=== PATIENT | male | born 1960 | race Caucasian/White ===

== ENCOUNTER 2025-03-05 06:35 | Day surgery (SDC) | payer MEDICARE, BC ==
[2025-03-05] MEDS ORDERED: Lactated Ringers 1,000 ML IV ONE (06:53)
[2025-03-05] MEDS ORDERED: CLINDAMYCIN-D5W 900 MG/50 ML*** 900 MG/50 ML BAG IV ONE (06:53)
[2025-03-05 07:09] VITALS: RESP 18
[2025-03-05] MEDS: Lactated Ringers 1,000 ML IV SCH (07:14)
[2025-03-05] MEDS: CLINDAMYCIN-D5W 900 MG/50 ML*** 900 MG/50 ML BAG IV SCH (07:15)
[2025-03-05 07:16] LABS: Hematocrit 43.5 % (40.1-51.0); Hemoglobin 14.1 g/dL (13.7-17.5); Mean Cell Volume 93.1 fL (79.0-92.2); Mean Corpuscular Hemoglobin 30.2 pg (25.7-32.2); Mean Corpuscular Hgb Concent. 32.4 g/dL (32.3-36.5); Mean Platelet Volume 8.5 fL (9.4-12.4); Platelet Count 260 x10^3/uL (163-337); Red Blood Count 4.67 x10^6/uL (4.63-6.08); Red Cell Distribution Width 13.5 % (11.6-14.4); White Blood Count 8.2 x10^3/uL (4.23-9.07)
[2025-03-05 07:29] LABS: ALBUMIN 4.5 g/dL (3.5-5.0); BILIRUBIN,TOTAL 0.5 mg/dL (0.2-1.3); Calcium 9.3 mg/dL (8.4-10.2); Creatinine 1 0.87 mg/dL (0.66-1.25); EST GLOMERULAR FILTRATION RATE 96.4 ML/MIN; Potassium 4.2 mmol/L (3.5-5.1); Total Protein 7.6 g/dL (6.3-8.2)
[2025-03-05] MEDS ORDERED: propofoL IV ONE (08:21)
[2025-03-05] MEDS ORDERED: Zofran 4 MG/2 ML VIAL ONE (08:21)
[2025-03-05] MEDS ORDERED: SUBLIMAZE 100 MCG/2 ML ONE (08:23)
[2025-03-05] MEDS ORDERED: Marcaine Mpf 0.5% Vial 30 Ml ONE (08:34)
[2025-03-05] MEDS ORDERED: XYLOCAINE 1% HCL 20 ML MDV ONE (08:34)
[2025-03-05] MEDS ORDERED: Ephedrine Sulfate 50 MG/ML ONE (09:20)
--- NOTE | 2025-03-05 11:29 | XRAY ---
Indication: Left 1st MTP arthrodesis, Carol osteotomy, plantar plate repair, and hammertoe correction. Intraoperative fluoroscopy provided for 2 minutes 32 seconds. 19 digital spot images submitted for interpretation ultimately demonstrates 1st MTP arthrodesis, 3rd metatarsal head Carol osteotomy, and fusion 2nd-4th toes all with intact hardware. Correlate with intraoperative findings/report.
[2025-03-05] MEDS ORDERED: DILAUDID 0.5 MG/0.5 ML SYRINGE ONE (12:30)
--- NOTE | 2025-03-05 12:37 | XRAY ---
Two minutes and 32 seconds of fluoroscopy was used in surgery for a left 1st MTP arthrodesis, Carol osteotomy, plantar plate repair, and hammertoe correction.
[2025-03-05 13:13] VITALS: BP 144/89; PULSE 62; TEMP 97.6; O2SAT 99
--- NOTE | 2025-03-06 09:07 | OP ---
SURGERY DATE/TIME: 03/05/2025 [id number] PREOPERATIVE DIAGNOSES: 1) Left foot pain. 2) First metatarsophalangeal osteoarthritis. 3) Left hallux valgus. 4) Hammertoes 2, 3, 4, and 5. 5) Plantar plate tear with complete dislocation of second metacarpophalangeal joint, partial dislocation of third metacarpophalangeal joint. 6) Metatarsal deformity. 7) Difficulty with ambulation. 8) Overload of second metatarsal head. POSTOPERATIVE DIAGNOSES: 1) Left foot pain. 2) First metatarsophalangeal osteoarthritis. 3) Left hallux valgus. 4) Hammertoes 2, 3, 4, and 5. 5) Plantar plate tear with complete dislocation of second metacarpophalangeal joint, partial dislocation of third metacarpophalangeal joint. 6) Metatarsal deformity. 7) Difficulty with ambulation. 8) Overload of second metatarsal head. PROCEDURE: 1) First metatarsophalangeal joint arthrodesis. 2) Modified metatarsal head osteotomy, second metatarsal. 3) Plantar plate repair second metacarpophalangeal joint. 4) Carol osteotomy, third metatarsal. 5) Hammertoe correction of 2, 3, and 4. 6) Derotational arthroplasty of the fifth digit. SURGEON: Sukhdeep Albert DPM [employer] ACCOUNT EXECUTIVE: Elana Wolfe and Peter Mora NP-C. HEMOSTASIS: Ankle tourniquet set to 250 mmHg for a total of 120 total tourniquet minutes. ESTIMATED BLOOD LOSS: Approximately 5 mL. MATERIALS: 3.4 x 34 interfragmentary screw, an A.L.P.S.; first MPJ 0-degree plate from [employer], a #2 MaxBraid for plantar plate repair; 2.0 x 14 partially-threaded headed cannulated screw for the third metatarsal Carol and then, two 2.5 x 40 VPC screws for the second and third hammertoes and a 2.5 x 32 VPC for the fourth; 4-0 Monocryl; 3-0 nylon. INJECTABLES: An ankle block consisting of 30 mL of 1:1 mixture of 1% lidocaine plain and 0.5% bupivacaine plain postoperatively. INDICATIONS: The patient is a very pleasant 64-year-old male, very well known to our service for pain to the left foot. Patient has overload to the second metatarsophalangeal joint and has had a significant bunion deformity, as well as a plantar plate tear. This has been such a chronic issue that he has been weightbearing on the metatarsal head with a completely subluxed second MPJ, which is dislocated and contracted. From that standpoint, he wishes to proceed with surgical intervention. He has put this off for a significant amount of time and is anxious to proceed. From that standpoint, patient had been made aware of all risks, complications and benefits of surgical intervention at this time, including but not limited to infection, hematoma, seroma, possibility of delayed wound healing, non-wound healing and possible failure of surgical intervention at a later date. Given his severity of his contractures, we did include a plantar plate repair, as well as repair of dislocated digit. In order to get the best possible effect, we did have to address the multiple digital contractures in his case. From that standpoint, he has been made aware of all risks, complications and benefits. Plenty of time was allowed for the patient to ask questions which were answered to his and his 's apparent satisfaction. No guarantees were provided as to the outcome; however, the goal of the procedure is to reduce deformity and eliminate pain. Given this, patient wishes to proceed. DESCRIPTION OF PROCEDURE AND FINDINGS: Patient was brought into the operating room, placed on the operating room table in the supine position. At this time, general anesthesia care was administered until the patient was adequately sedated. A well-padded ankle tourniquet was applied to the patient's left ankle and the tourniquet was set to 250 mmHg. At this time, the left lower extremity was prepped and draped in the typical sterile fashion, lowered onto the surgical field. At this time, attention was directed to the dorsal aspect of the left foot over the first MPJ and going just medial to the extensor hallucis longus tendon and making an incision. After the foot was exsanguinated and the tourniquet was inflated, a linear incision, approximately 6 cm in length. This was carried down, making sure not to damage any neurovascular structures along the way. From that standpoint, this was carried down to the level of bone and retracting the extensor hallucis longus tendon out of the way. A capsulotomy was performed at this time, releasing the first metatarsophalangeal joint. The joint was inspected at this time, deeming significant articular cartilage degeneration, particularly centrally; however, more so at the medial aspect of the joint. From that standpoint, decision was made to pass McGlamry to loosen up soft tissue attachments after a medial and lateral collateral ligament release. Once this was performed, cup and conical reamers were utilized to denude the cartilage off of the first MPJ and base of the proximal phalanx. Once this was performed, copious amounts of sterile saline were utilized to flush the surgical site and then 2 mm drill was utilized to fenestrate and a curved osteotome was utilized to fish scale the joint surface on both the metatarsal head and the proximal phalanx side. At this time, a K-wire was utilized to reduce the position for later use of the interfragmentary screw and then a first metatarsophalangeal joint 0-degree A.L.P.S. plate was introduced dorsally. A cortical screw was placed in the distal aspect and then, locking screws were placed to hold that position. Once this was performed, an eccentric slot was then drilled and then, the screw was placed but not engaged into the plate. Under fluoroscopic guidance, the interfragmentary screw was then advanced. A 3.4 x 34 mm screw was utilized. Following this, there was alternation between the eccentric and the interfragmentary screw to get the majority of the compression provided through this site. After that, a combination of locking and nonlocking screws were utilized to compress the joint and lock this down even further. Position was assessed and deemed to be adequate. Attention then was directed over the dorsal aspect of the second metatarsophalangeal joint where a linear incision was made. An attempt to relocate the digit was made; however, we did decide on a modified metatarsal osteotomy at this time in order to elevate the metatarsal head, fix the plantar plate and allow for some elevation and a reduction of pressure of the second metatarsal head in this location. At this time, an 18 mm sagittal saw was utilized to cut the surgical neck of the metatarsal. The osteotomy took place once again at the surgical neck. This allowed for elevation of the metatarsal once the soft tissue attachments were released at the medial and lateral metatarsophalangeal joint. Once this was released, the plantar plate aspect of the procedure was performed where K-wires were advanced in through the metatarsal head, exiting the plantar aspect of the articular cartilage. This was drilled with a 2 mm drill and 2 Trae needles were then passed with a #2 MaxBraid. This was passed through the bottom of the foot. This was retrieved from inside the metatarsophalangeal joint with skin hooks. Once this was retrieved, K-wires were then advanced to the articular cartilage of the proximal phalanx base and then, similarly 2 mm drill was passed and utilizing a Hewson, a remainder of the suture was captured with the second metatarsal head dorsiflex being pushed from the bottom in a dorsiflexed position and the toe being held in a plantar flexed position. The 2-0 MaxBraid was then tied, securing the plantar plate. Once this was performed, the position of the toe was significantly improved and decision was made to move on with the Carol osteotomy of the third metatarsal secondary to the dorsal contracture. Once this was performed, a linear incision was made over the dorsal aspect of the first MPJ, measuring approximately 2 cm. A Z-lengthening osteotomy of the tendon was performed. Once this was retracted out of the way, an 18 mm sagittal saw was then utilized to cut the articular cartilage relative to the weightbearing surface, shifting the metatarsal head back and still respecting the metatarsal parabola, however, getting a significant amount of correction of the dorsiflexor contracture at the metatarsophalangeal joint. Once this was performed, the resection of the second, third and fourth metatarsal proximal phalangeal heads was carried out in a very similar fashion. An 18 mm sagittal saw was utilized after capsular dissection of the proximal phalangeal head and the base of the middle phalanx. A K-wire was then retrograded out of the tip of the middle and the distal phalanx and then antegrading it down the proximal phalanx, holding the position in an adequate position which clinically looked well, as well as intramedullary within the digits. Digits 2, 3 and 4 were performed a similar fashion, utilizing a 2.5 x 40 and a 2.5 x 32 VPC screw respectively. From that standpoint, a derotational arthroplasty was performed, a skin plasty was first performed and then the resection of the proximal phalanx was performed to allow for better mobility of the fifth digit. When the skin was closed, the derotation aspect of the procedure was completed. Following this, copious nonsterile saline was utilized to flush the surgical site. A 4-0 Monocryl was utilized to repair the osteotomies on tendons going to the second and third digits. From that standpoint, 4-0 Monocryl was utilized to coapt the subcutaneous skin edges and then, 3-0 nylon was utilized in a horizontal mattress-type fashion to coapt the skin edges. Dressing consisting of Betadine, Adaptic, 4 x 4, Kerlix, ABD and Dale was applied to the patient's left lower extremity. Patient was then returned to the postoperative anesthesia care unit with vital signs stable and vascular status intact. Patient handled the anesthesia, as well as the procedure without significant complication. Postoperative orders as indicated in the patient's discharge chart.
== END 2025-03-05 13:33 | disposition home or self-care (01) ==
LOC: SDC 06:35
PROVIDERS: ATTEND Podiatrist Foot & Ankle Surgery
DX: M19.072 Primary osteoarthritis, left ankle and foot (principal); M79.672 Pain in left foot; M20.12 Hallux valgus (acquired), left foot; M20.42 Other hammer toe(s) (acquired), left foot; S93.525A Sprain of metatarsophalangeal joint of left lesser toe(s), initial encounter; M21.962 Unspecified acquired deformity of left lower leg; R26.2 Difficulty in walking, not elsewhere classified; M77.42 Metatarsalgia, left foot
CPT/HCPCS: 28285; 28308; 28313; 28750; 36415; 73630; 76000; 80053; 85027; 93005; C1713; C1769; J1171; J2405; J2704; J3010